=== PATIENT | male | born 1955 | race Caucasian/White ===

== ENCOUNTER 2021-04-20 17:10 | Inpatient (IN) | payer BC, MEDICARE ==
[~2021-04-20] VITALS: Ht 180.3 cm; Wt 86.6 kg
[2021-04-20] MEDS ORDERED: PEMB100V IV (17:20)
--- NOTE | 2021-04-20 18:19 | NUR ---
pt biba, c/o gradual generalized weakness onset this am, onset between 2486-6905 this am. hx sepsis to port, has since been removed. 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
[2021-04-20] MEDS ORDERED: CEFTRIAXONE 1,000 MG in DEXTROSE 5% 50 ML IVPB ONE (18:30)
[2021-04-20] MEDS ORDERED: SODIUM CHLORIDE 0.9% 1,000ML IVBOLUS ONE (18:30)
--- NOTE | 2021-04-20 18:30 | NUR ---
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 AWARE PT MEETING SEPSIS CRITERIA, STATES WEIGHT BASED BOLUS NOT INDICATED AT THIS TIME.
[2021-04-20 18:37] LABS: ALBUMIN 3.3 g/dL (3.4-5.0); ANION GAP 7 mmol/L (5-15); CALCIUM 8.3 mg/dL (8.5-10.1); CHLORIDE 106 mmol/L (98-107)
[2021-04-20 18:45] LABS: ALANINE AMINOTRANSFERASE 20 U/L (12-78); ALKALINE PHOSPHATASE 101 U/L (45-117); BILIRUBIN,TOTAL 0.8 mg/dL (0.2-1.0); CREATININE 1.74 mg/dL (0.7-1.3); TOTAL PROTEIN 7.3 g/dL (6.4-8.2); TROPONIN I < 0.015 ng/mL (0.000-0.045)
[2021-04-20 18:49] LABS: MICROSCOPIC INDICATED
[2021-04-20 18:53] LABS: MEAN CORPUSCULAR HGB CONC 32.6 g/dL (33.2-36.2); MEAN PLATELET VOLUME 11.1 fL (7.4-10.4); PLATELET COUNT 148 x10^3/uL (130-400); RED BLOOD COUNT 4.53 x10^6/uL (4.38-5.82); RED CELL DISTRIBUTION WIDTH 15.4 % (9.4-14.8)
--- NOTE | 2021-04-20 18:56 | NUR ---
BEDSIDE REPORT GIVEN TO BIRDIE WOOD
--- NOTE | 2021-04-20 19:00 | NUR ---
Pt resting comfortably at this time. alert and oriented x4. IV fluids running, denies needs currently
[2021-04-20 19:19] LABS: BAND#(MANUAL) 0.12 x10^3/uL; BANDS%(MANUAL) 1 % (0-7); LYMPH#(MANUAL) 0.48 x10^3/uL (1-3.4); LYMPHS% (MANUAL) 4 % (22-44); MONOS#(MANUAL) 0.96 x10^3/uL (0.3-2.7); MONOS% (MANUAL) 8 % (2-9); SEG#(MANUAL) 10.44 x10^3/uL (1.8-6.8); SEGS% (MANUAL) 87 % (42-75)
[2021-04-20 19:20] LABS: <PLATELET ESTIMATE> ADEQUATE; <PLT MORPHOLOGY> NORMAL PLT MORPH
[2021-04-20 19:21] LABS: <RBC MORPHOLOGY> NORMAL
--- NOTE | 2021-04-20 20:41 | NUR ---
Ot tolerated PO well, VS updated, awaiting IP bed assignment. Updated on POC. Denies needs, call lay within reach.
[2021-04-20] MEDS ORDERED: morphine SULFATE 10 MG/ML, 1ML IVPush PRN (21:00)
[2021-04-20] MEDS ORDERED: DOCUSATE 100 MG CAPSULE PO PRN (21:00)
[2021-04-20] MEDS ORDERED: METHOCARBAMOL 500 MG TABLET PO PRN (21:00)
[2021-04-20] MEDS ORDERED: GUAIFENESIN/DM 200-20MG, 10ML UDC PO PRN (21:00)
[2021-04-20] MEDS ORDERED: ONDANSETRON 2MG/ML, 2ML IVPush PRN (21:00)
[2021-04-20] MEDS ORDERED: SODIUM CHLORIDE 0.9% 1,000 ML IV SCH (21:00)
[2021-04-20] MEDS ORDERED: ACETAMINOPHEN 325 MG TABLET PO PRN (21:00)
[2021-04-20] MEDS ORDERED: HYDROcodone/APAP 5/325 TABLET PO PRN (21:00)
[2021-04-20] MEDS ORDERED: ZOLPIDEM 5MG TABLET PO PRN (21:00)
--- NOTE | 2021-04-20 22:40 | NUR ---
Report given to ISRAEL Shepherd
[2021-04-20] MEDS: HEPARIN 5,000 UNITS/ML, 1ML SQ SCH (23:25)
[2021-04-20 23:30] VITALS: BP 126/102
[2021-04-21 01:34] VITALS: BP 188/72
[2021-04-21] MEDS: hydrALAzine 20 MG/ML, 1ML IVPush PRN ×2 (01:43→13:55)
[2021-04-21 05:21] LABS: BASOPHILS % (AUTO) 1 % (0-1); EOSINOPHILS % (AUTO) 0 % (1-7); LYMPHOCYTES % (AUTO) 5 % (22-44); MEAN CORPUSCULAR HEMOGLOBIN 27.4 pg (27.5-34.5); MEAN CORPUSCULAR HGB CONC 33.2 g/dL (33.2-36.2); MEAN PLATELET VOLUME 11.4 fL (7.4-10.4); MONOCYTES % (AUTO) 10 % (2-9); NEUTROPHILS % (AUTO) 85 % (42-75); PLATELET COUNT 142 x10^3/uL (130-400); RED BLOOD COUNT 4.39 x10^6/uL (4.38-5.82); RED CELL DISTRIBUTION WIDTH 15.3 % (9.4-14.8)
[2021-04-21 05:30] LABS: ANION GAP 8 mmol/L (5-15); CALCIUM 8.2 mg/dL (8.5-10.1); CHLORIDE 107 mmol/L (98-107)
[2021-04-21 05:31] LABS: CREATININE 1.61 mg/dL (0.7-1.3)
[2021-04-21 06:52] VITALS: BP 161/82
[2021-04-21] MEDS: HEPARIN 5,000 UNITS/ML, 1ML SQ SCH ×3 (08:37→23:37)
[2021-04-21] MEDS: D5%-LACTATED RINGERS 1,000 ML IV SCH ×2 (11:32→17:36)
[2021-04-21 13:29] VITALS: BP 180/82
[2021-04-21 13:56] VITALS: BP 174/89
[2021-04-21] MEDS ORDERED: PHARMACY MAY ADJ FOR RENAL FX MC PRN (14:00)
[2021-04-21] MEDS ORDERED: AMLODIPINE 5 MG TABLET PO ONE (14:04)
[2021-04-21] MEDS: CEFAZOLIN PMX 1GM/50ML 50 ML IV SCH (14:32)
[2021-04-21 15:23] VITALS: BP 157/74
[2021-04-21] MEDS: CEFTRIAXONE 2 GM in DEXTROSE 5% 50 ML IVPB SCH (17:36)
[2021-04-21] MEDS: AMLODIPINE 5 MG TABLET PO SCH (20:46)
[2021-04-21 21:12] VITALS: BP 175/82
[2021-04-22] MEDS: D5%-LACTATED RINGERS 1,000 ML IV SCH (02:00)
[2021-04-22] MEDS: CEFAZOLIN PMX 1GM/50ML 50 ML IV SCH ×2 (02:07→13:35)
[2021-04-22 02:09] VITALS: BP 155/78
[2021-04-22 05:50] LABS: BASOPHILS % (AUTO) 0 % (0-1); EOSINOPHILS % (AUTO) 0 % (1-7); LYMPHOCYTES % (AUTO) 9 % (22-44); MEAN CORPUSCULAR HEMOGLOBIN 27.4 pg (27.5-34.5); MEAN CORPUSCULAR HGB CONC 33.1 g/dL (33.2-36.2); MEAN PLATELET VOLUME 11.7 fL (7.4-10.4); MONOCYTES % (AUTO) 16 % (2-9); NEUTROPHILS % (AUTO) 74 % (42-75); PLATELET COUNT 133 x10^3/uL (130-400); RED BLOOD COUNT 4.24 x10^6/uL (4.38-5.82); RED CELL DISTRIBUTION WIDTH 15.2 % (9.4-14.8)
[2021-04-22 05:58] LABS: ANION GAP 5 mmol/L (5-15); CALCIUM 8.1 mg/dL (8.5-10.1); CHLORIDE 109 mmol/L (98-107)
[2021-04-22 07:15] VITALS: BP 175/75
[2021-04-22] MEDS: AMLODIPINE 5 MG TABLET PO SCH ×2 (09:19→19:38)
[2021-04-22] MEDS: HEPARIN 5,000 UNITS/ML, 1ML SQ SCH ×3 (09:19→22:53)
[2021-04-22 12:32] VITALS: BP 153/84
[2021-04-22] MEDS: CEFTRIAXONE 2 GM in DEXTROSE 5% 50 ML IVPB SCH (18:13)
[2021-04-22 19:57] VITALS: BP 120/62
[2021-04-23 01:02] VITALS: BP 128/74
[2021-04-23] MEDS: CEFAZOLIN PMX 1GM/50ML 50 ML IV SCH (01:40)
[2021-04-23 06:30] LABS: ANION GAP 2 mmol/L (5-15); CALCIUM 8.3 mg/dL (8.5-10.1); CHLORIDE 109 mmol/L (98-107); CREATININE 1.64 mg/dL (0.7-1.3)
[2021-04-23] MEDS: HEPARIN 5,000 UNITS/ML, 1ML SQ SCH (07:30)
[2021-04-23 08:11] VITALS: BP 149/84
[2021-04-23] MEDS: AMLODIPINE 5 MG TABLET PO SCH (08:14)
[2021-04-23] MEDS ORDERED: AMLO-150 PO (10:53)
[2021-04-23] MEDS ORDERED: CEFD300C37 PO (10:53)
== END 2021-04-23 13:02 | disposition home or self-care (01) | DRG 872 ==
LOC: ED 17:40 → EDIP 20:27 → 3N 22:55
PROVIDERS: ADMIT Internal Medicine; ATTEND Family Medicine
DX: A41.1 Sepsis due to other specified staphylococcus (principal); E87.1 Hypo-osmolality and hyponatremia; N17.9 Acute kidney failure, unspecified; N39.0 Urinary tract infection, site not specified; D64.9 Anemia, unspecified; R73.9 Hyperglycemia, unspecified; Z85.51 Personal history of malignant neoplasm of bladder; Z90.5 Acquired absence of kidney; Z93.6 Other artificial openings of urinary tract status; Z85.528 Personal history of other malignant neoplasm of kidney; Z80.0 Family history of malignant neoplasm of digestive organs; Z80.8 Family history of malignant neoplasm of other organs or systems
CPT/HCPCS: 36415; 84145; 96374; 99285; J7121; 71045; 80048; 80053; 81001; 83605; 83735; 84100; 84484; 85025; 87040; 87086; 93005; G0378; J0690; J0696; J1644; J0360; J7030